=== PATIENT | male | born 1950 | race Caucasian/White ===

== ENCOUNTER 2017-04-01 15:11 | Day surgery (SDC) | payer OTHER ==
[2017-04-01] VITALS (11 sets, daily range): BP systolic 112–136; BP diastolic 28–59; PULSE 70–76; RESP 15–31; Ht 172.7 cm; Wt 65.0 kg
[~2017-04-01] VITALS: Ht 172.7 cm; Wt 65.0 kg
[2017-04-01] MEDS ORDERED: PHENYLephrine (100 MCG/ML) 5ML SYG ONE (15:33)
[2017-04-01] MEDS ORDERED: PROPOFOL 20 ML ONE (15:33)
--- NOTE | 2017-04-01 16:11 | OPPN ---
Date/Time of Note Date/Time of Note DATE: 04/01/17 TIME: 16:09 Proc Note GI Procedure Date 04/01/17 Indication: diagnostic Pre-procedure Diagnosis GI bleeding Post-procedure Diagnosis Severe gastritis mimicking gave disease Procedure Performed: Endoscopy Surgeon see signature line District [employer] none Anesthesia Type: MAC Tourniquet Time none EBL none Transfusion required none Biopsy 1: 4 biopsies from the stomach Grafts/Implants none Tubes/Drains none Complication(s) none Disposition: PACU Procedure Description Procedure dictated TRACEY BROWN MD Apr 01, 2017 16:11
--- NOTE | 2017-04-01 16:11 | OPPN ---
Date/Time of Note Date/Time of Note DATE: 04/01/17 TIME: 16:09 Proc Note GI Procedure Date 04/01/17 Indication: diagnostic Pre-procedure Diagnosis GI bleeding Post-procedure Diagnosis Severe gastritis mimicking gave disease Procedure Performed: Endoscopy Surgeon see signature line Garment Manufacturer none Anesthesia Type: MAC Tourniquet Time none EBL none Transfusion required none Biopsy 1: 4 biopsies from the stomach Grafts/Implants none Tubes/Drains none Complication(s) none Disposition: PACU Procedure Description Procedure dictated TRACEY BROWN MD Apr 01, 2017 16:11
--- NOTE | 2017-04-02 06:20 | GILP ---
DATE OF PROCEDURE: PROCEDURE PERFORMED: Esophagogastroduodenoscopy with biopsy. INDICATION: A 67-year-old male with anoxic encephalopathy, undergoing this procedure for anemia and positive stool guaiac. The purpose is to evaluate the upper GI tract, find out the cause of bleedi ng. INFORMED CONSENT: The risk of the procedure, related and unrelated complications, anesthetic risks, alternatives discussed and informed consent was obtained. DESCRIPTION OF PROCEDURE: The patient was brought to the GI lab, sedated by anesthesiologist. Afte r obtaining sedation, scope was passed with much ease into esophagus which was grossly within normal limits except for mild esophagitis. Stomach mucosa revealed hyperemic red fold and also the antrum showed severe inflammation. 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 Duodenum, first and second part including ampulla appeared normal. Biopsy taken to ob ellie from the GAVE segment and also 2 biopsies from the non-gave segment. Scope was removed with go od patient tolerance. IMPRESSION: 1. Severe gastritis versus gastric antral vascular ectasia disease. 2. Mild esophagitis. 3. Normal second part of the duodenum. PLAN: Review histopathology. Will review H. pylori urease test. Patient should refrain from aspir in and all NSAIDs and if the bleeding continues with significant drop in hematocrit, then allow to p roceed with banding procedure rather than APC. Dictated By: TRACEY VIERA/JAYLA Conf#: [id number] DID#: [id number]
== END 2017-04-01 17:58 | disposition home or self-care (01) ==
LOC: GIL 15:11
PROVIDERS: ATTEND Internal Medicine Gastroenterology
DX: K29.50 Unspecified chronic gastritis without bleeding (principal); K29.00 Acute gastritis without bleeding; K21.0 Gastro-esophageal reflux disease with esophagitis; D64.9 Anemia, unspecified; I25.10 Atherosclerotic heart disease of native coronary artery without angina pectoris; J44.9 Chronic obstructive pulmonary disease, unspecified; E78.5 Hyperlipidemia, unspecified; E11.9 Type 2 diabetes mellitus without complications; I10 Essential (primary) hypertension; Z85.118 Personal history of other malignant neoplasm of bronchus and lung; Z79.82 Long term (current) use of aspirin; Z79.02 Long term (current) use of antithrombotics/antiplatelets; Z93.1 Gastrostomy status; Z87.01 Personal history of pneumonia (recurrent); L89.90 Pressure ulcer of unspecified site, unspecified stage; J96.10 Chronic respiratory failure, unspecified whether with hypoxia or hypercapnia; Z99.11 Dependence on respirator [ventilator] status
CPT/HCPCS: J2370